=== PATIENT | male | born 1985 | race Caucasian/White ===

== ENCOUNTER 2022-07-22 18:26 | Emergency (ER) | payer SELFPAY ==
[~2022-07-22] VITALS: Ht 172.7 cm; Wt 81.6 kg
--- NOTE | 2022-07-22 18:28 | NUR ---
COURTNEY VEGA, VIA GURNEY TO BED 01.
[2022-07-22 18:30] VITALS: BP 104/82
--- NOTE | 2022-07-22 19:01 | NUR ---
36 [address], patient was found unresponsive laying on the street. Patient has no recollection of events that lead to ambulance being called. Patient denies any pain or discomfort. Patient states "his memory is like an Alzheimer's patient because of his MS." Denies SOB, Chest Pain, fever or chills. Medical History: MS, Tourettes NKDA
--- NOTE | 2022-07-22 19:25 | NUR ---
Pt report given to MACARIO Castro. Transfer of care at this time.
[2022-07-22] MEDS ORDERED: NACL 0.9% 1,000 ML IV ONE ×4 (20:05→23:55)
--- NOTE | 2022-07-22 20:26 | NUR ---
PT TAKEN TO RADIOLOGY
[2022-07-22 20:37] LABS: BASOPHILS % (AUTO) 0.4 % (0.0-2.0); EOSINOPHILS # (AUTO) 0.1 K/uL (0-0.4); EOSINOPHILS % (AUTO) 1.1 % (0.0-4.0); HEMATOCRIT 45.3 % (36-52); HEMOGLOBIN 15.8 g/dL (12.0-18.0); LYMPHOCYTES % (AUTO) 19.9 % (20.5-51.1); MEAN CORPUSCULAR HEMOGLOBIN 33 pg (27-31); MEAN CORPUSCULAR HGB CONC 35 g/dL (33-37); MEAN CORPUSCULAR VOLUME 94.4 fL (80-94); MONOCYTES # (AUTO) 0.9 K/uL (0.8-1.0); MONOCYTES % (AUTO) 8.5 % (1.7-9.3); NEUTROPHILS # (AUTO) 7.2 K/uL (1.8-7.7); NEUTROPHILS % (AUTO) 70.1 % (42.2-75.2); PLATELET COUNT (AUTO) 272 K/uL (140-450); RED CELL DISTRIBUTION WIDTH 13.5 % (11.6-13.7); WHITE BLOOD COUNT (AUTO) 10.3 K/uL (4.8-10.8)
--- NOTE | 2022-07-22 20:42 | NUR ---
PT RETURN FROM RADIOLOGY
[2022-07-22 21:25] LABS: ALBUMIN 3.9 g/dL (3.4-5.0); ANION GAP 14.1 (8-16); ASPARTATE AMINOTRANSFERASE 12 U/L (15-37); CARBON DIOXIDE 24.8 mmol/L (21-32); CHLORIDE 104 mmol/L (98-107); CREATININE 1.2 mg/dL (0.6-1.3); GFR ARICAN-AMERICAN 88 mL/min (>90); GLUCOSE 94 mg/dL (74-106); POTASSIUM 3.9 mmol/L (3.5-5.1); SODIUM SERUM 139 mmol/L (136-145); TOTAL BILIRUBIN 0.5 mg/dL (0.0-1.0); UREA NITROGEN, BLOOD 22 mg/dL (7-18)
--- NOTE | 2022-07-22 21:50 | NUR ---
ER physician verbally informed of patient's last vital signs. ER physician verbalized understanding.
[2022-07-22 22:21] LABS: ACETAMINOPHEN < 0.5 ug/ml (10-30); SALICYLATE < 2.8 mg/dL (2.8-20.0)
[2022-07-22 23:16] LABS: BARBITURATE, URINE NEGATIVE ng/ml (NEG <=200); BENZODIAZEPINE, URINE NEGATIVE ng/mL (NEG <=200); CANNABINOID, URINE POSITIVE ng/mL (NEG <=50); COCAINE, URINE NEGATIVE ng/mL (NEG <=300); OPIATE, URINE NEGATIVE ng/mL (NEG <=2000); PHENCYCLIDINE SCREEN,URINE NEGATIVE ng/mL (NEG <=25)
--- NOTE | 2022-07-23 03:12 | NUR ---
Dr. Jones re-examining patient.
[2022-07-23 06:14] VITALS: BP 110/71
--- NOTE | 2022-07-23 06:23 | NUR ---
Patient discharged with v/s stable. Written and verbal after care instructions given and explained. Patient verbalized understanding. Ambulatory with steady gait. All questions addressed prior to discharge. Advised to follow up with PMD.
== END 2022-07-23 06:23 | disposition home or self-care (01) ==
LOC: MED 18:26
DX: R41.82 Altered mental status, unspecified (principal); Z20.822 Contact with and (suspected) exposure to COVID-19; F12.10 Cannabis abuse, uncomplicated; G35 Multiple sclerosis
CPT/HCPCS: 36415; 70450; 71045; 80053; 80305; 82140; 84484; 85025; 87426; 96360; 96361; 99285; G0480; G0482; J7030; Q0092; 93005